=== PATIENT | male | born 1945 | race Caucasian/White ===

== ENCOUNTER 2017-03-29 19:11 | Emergency (ER) | payer MEDICARE ==
[~2017-03-29] VITALS: Ht 177.8 cm; Wt 82.9 kg
[~2017-03-29 19:11] MED LIST: ALPR.25 PO; GABA600T PO; METO25 PO; ROSU10 PO; VIAG50TA PO; ZOLO50TA PO
[2017-03-29 19:30] VITALS: BP 168/81; PULSE 83; RESP 16; TEMP 98.7; O2SAT 96
[2017-03-29] MEDS ORDERED: METO25TA3 PO (19:48)
[2017-03-29] MEDS ORDERED: ROSU5 PO (19:48)
[2017-03-29 19:55] VITALS: BP 167/81; PULSE 83; RESP 18; O2SAT 97
--- NOTE | 2017-03-29 19:55 | PD ---
HPI Chief Complaint: Allergic/Adverse Reaction Time Seen by Provider: 19:41 Travel History International Travel<30 days: No Contact w/Intl Traveler<30days: No Traveled to known affect area: No History of Present Illness HPI This patient filled a new prescription today Wellbutrin XL 150 mg. He took the first dose at 6 PM and tenderness later he developed dry mouth and dizziness. Symptoms severity is mild to moderate. Duration is 2 hours. Symptoms exacerbated by new medication. No alleviating factors. He takes it for stress and anxiety. PFSH Past Medical History Cancer: Yes (SKIN CA ON ARM AND FACE) Cardiovascular Problems: No Diabetes: No Diminished Hearing: No Endocrine: No Genitourinary: No Hepatitis: No Hiatal Hernia: No Hypertension: Yes Immune Disorder: No Musculoskeletal: No Neurologic: Yes (NUMBNESS AND TINGLING IN HEAD, CHEST ARMS AND LEGS) Psychiatric: No Reproductive: No Respiratory: No Thyroid Disease: No Past Surgical History Abdominal Surgery: No AICD: No Cardiac Surgery: No Ear Surgery: No Endocrine Surgery: No Eye Surgery: No Genitourinary Surgery: No Gynecologic Surgery: No Joint Replacement: No Oral Surgery: No Pacemaker: No Thoracic Surgery: No Other Surgery: Yes (DEVIATED SEPTUM) Social History Alcohol Use: No Tobacco Use: No Substance Use: No Allergies-Medications (Allergen,Severity, Reaction): Coded Allergies: Sulfa (Sulfonamide Antibiotics) (Unverified Allergy, Severe, 03/29/17) Reported Meds & Prescriptions Reported Meds & Active Scripts Active Reported Crestor (Rosuvastatin Calcium) 5 Mg Tab 5 Mg PO DAILY Metoprolol Tartrate 25 Mg Tab 25 Mg PO DAILY Review of Systems General / Constitutional: No: Fever Cardiovascular: No: Chest Pain or Discomfort Respiratory: No: Cough Gastrointestinal: No: Vomiting Physical Exam Narrative RESPIRATORY: Respiratory effort unlabored, no retractions or use of accessory muscles. Breath sounds are clear and symmetric. GASTROINTESTINAL: Abdomen soft, non-tender, nondistended. Positive bowel sounds. No hepato-splenomegaly, or palpable masses. No guarding. CARDIOVASCULAR: Regular rate and rhythm without murmur. Extremities showed no edema or varicosities. Data Data Last Documented VS Vital Signs Date Time Temp Pulse Resp B/P (MAP) Pulse Ox O2 Delivery O2 Flow Rate FiO2 03/29/17 19:51 83 18 96 Room Air 03/29/17 19:30 98.7 168/81 (110) [facility] Medical Decision Making Medical Screen Exam Complete: Yes Emergency Medical Condition: Yes Medical Record Reviewed: Yes Differential Diagnosis Medication side effect, allergic reaction, anxiety Narrative Course I have reviewed the patient's electronic medical record. Patient is having an adverse medication reaction to a new medication. He is not allergic. Will stop taking the medication. He has first substitute in the meantime and I wrote him 15 Vistaril to use as needed. I have warned him about the potential for sedation. He is to follow-up with primary care and discuss different medications Diagnosis Primary Impression: Medication side effects Qualified Codes: T88.7XXA - Unspecified adverse effect of drug or medicament, initial encounter Additional Instructions: The patient was advised to follow up with their physician and return if they worsen. The patient was warned about potential sedation for the medications they will receive on prescription. Med/Other Pt SpecificInfo: Prescription(s) given Disposition: 01 DISCHARGE HOME Condition: Stable Tam Cardenas MD Mar 29, 2017 19:55
[2017-03-29] MEDS ORDERED: VIST25CA PO (19:57)
== END 2017-03-29 20:13 | disposition home or self-care (01) ==
LOC: PHED 19:11
DX: T88.7XXA Unspecified adverse effect of drug or medicament, initial encounter (principal); I10 Essential (primary) hypertension
CPT/HCPCS: 99283

== ENCOUNTER 2017-08-03 10:53 | Emergency (ER) | payer MEDICARE ==
[~2017-08-03] VITALS: Ht 177.8 cm; Wt 86.3 kg
[~2017-08-03 10:53] MED LIST changes: -ALPR.25 PO; -GABA600T PO; -METO25 PO; +METO25TA3 PO; -ROSU10 PO; +ROSU5 PO; -VIAG50TA PO; +VIST25CA PO; -ZOLO50TA PO
[2017-08-03 10:57] VITALS: BP 139/70; PULSE 66; RESP 16; TEMP 97.7; O2SAT 96
[2017-08-03] MEDS ORDERED: ASPI-516 CHEW (11:27)
--- NOTE | 2017-08-03 12:29 | RADRPT ---
EXAM DATE/TIME: 08/03/2017 12:18 [place] COMPARISON: No previous studies available for comparison. INDICATIONS : Right distal thumb laceration from table saw. MEDICAL HISTORY : Hypertension. SURGICAL HISTORY : Deviated septum ENCOUNTER: Initial ACUITY: 1 day PAIN SCORE: 7/10 LOCATION: Right distal thumb FINDINGS: Examination of the first digit of the right hand demonstrates no evidence of fracture or dislocation. No radiopaque foreign bodies are seen. The soft tissues are intact. CONCLUSION: No acute fracture. Michel Skinner MD on August 03, 2017 at 12:27 Board Certified Radiologist. This report was verified electronically.
[2017-08-03] MEDS ORDERED: CEPH-460 PO (12:35)
--- NOTE | 2017-08-03 12:37 | PD ---
HPI Chief Complaint: Laceration/Skin Injury Time Seen by Provider: 11:19 Travel History International Travel<30 days: No Contact w/Intl Traveler<30days: No Traveled to known affect area: No History of Present Illness HPI This is a 71-year-old male here with a laceration to his right thumb caused by a table saw prior to arrival. His pain at the site of the laceration. No paresthesia or weakness of the digit. He has normal sensation and full range of motion. Tetanus immunization is up-to-date. Symptom severity is moderate. PFSH Past Medical History Hx Anticoagulant Therapy: Yes (asa 81mg) Anxiety: Yes Cancer: Yes (SKIN CA ON ARM AND FACE) Cardiovascular Problems: Yes (htn on meds) Diabetes: No Diminished Hearing: No Endocrine: No Gastrointestinal Disorders: No Genitourinary: No Hepatitis: No Hiatal Hernia: No Hypertension: Yes Immune Disorder: No Musculoskeletal: No Neurologic: Yes (NUMBNESS AND TINGLING IN HEAD, CHEST ARMS AND LEGS) Psychiatric: No Reproductive: No Respiratory: No Thyroid Disease: No Tetanus Vaccination: < 5 Years Influenza Vaccination: Yes Past Surgical History Abdominal Surgery: No AICD: No Cardiac Surgery: No Ear Surgery: No Endocrine Surgery: No Eye Surgery: No Genitourinary Surgery: No Gynecologic Surgery: No Joint Replacement: No Neurologic Surgery: No Oral Surgery: No Pacemaker: No Thoracic Surgery: No Other Surgery: Yes (DEVIATED SEPTUM) Social History Alcohol Use: Yes (OCCASIONAL) Tobacco Use: No Substance Use: No Allergies-Medications (Allergen,Severity, Reaction): Coded Allergies: Sulfa (Sulfonamide Antibiotics) (Verified Allergy, Severe, 08/03/17) Reported Meds & Prescriptions Reported Meds & Active Scripts Active Vistaril (Hydroxyzine Pamoate) 25 Mg Cap 25 Mg PO Q6H PRN Reported Aspirin 81 Mg Chew 81 Mg CHEW DAILY Crestor (Rosuvastatin Calcium) 5 Mg Tab 5 Mg PO DAILY Metoprolol Tartrate 25 Mg Tab 25 Mg PO DAILY Review of Systems Except as stated in HPI: all other systems reviewed are Neg Physical Exam Narrative GENERAL: Alert well-appearing 71-year-old male SKIN: Warm and dry. 2 cm flap laceration to the right thumb distal medial aspect. Small portion of the nail also missing. HEAD: Normocephalic. EYES: No injection or drainage. NECK: Supple MUSCULOSKELETAL: No cyanosis, or edema. Right thumb: 2 cm flap laceration to the right thumb distal medial aspect. Small portion of the nail also missing. Patient is able to flex and extend the IP joint. Normal sensation. Normal coloration. Brisk cap refill. Data Data Last Documented VS Vital Signs Date Time Temp Pulse Resp B/P (MAP) Pulse Ox O2 Delivery O2 Flow Rate FiO2 08/03/17 10:57 97.7 66 16 139/70 (93) 96 Orders Orders Finger ([id number]) (08/03/17 ) MDM Medical Decision Making Medical Screen Exam Complete: Yes Emergency Medical Condition: Yes Differential Diagnosis Laceration, nail bed injury, tendon/ligamental injury Narrative Course This is a 71-year-old male here with a flap laceration to the distal aspect of his right thumb. The digit is neurovascularly intact. I do not suspect foreign body or tendon injury. X-ray was obtained to rule out thumb fracture or foreign body. The wound was moderately contaminated from the blade of the saw. The wound was extensively irrigated. Laceration repair performed. There is a small area of avulsed skin loss which could not be sutured closed. He will be put on a short dose of of prophylactic antibiotics. Wound care discussed. She is to follow up with his primary doctor for recheck Procedures Procedure Narrative LACERATION LOCATION: Right thumb LENGTH: 2 cm flap laceration NUMBER OF STITCHES/HANY: 5 REPAIR: The area of the laceration was prepped with Betadine and sterilely draped. Digital block performed using 1% lidocaine. The wound was copiously irrigated and explored without evidence of foreign body, tendon injury or neurovascular injury. The wound was closed using 4-0 Ethilon. This was a single layer repair. A sterile dressing was applied. The patient was advised to keep the dressing clean and dry. Patient tolerated the procedure well. Diagnosis Primary Impression: Thumb laceration Qualified Codes: S61.111A - Laceration without foreign body of right thumb with damage to nail, initial encounter Referrals: Primary Care Physician Additional Instructions: Cleansed the area daily with soap and water. The area dry. Apply thin layer of antibiotic ointment and cover with a dressing. Do not submerge the wound in water. Antibiotics as prescribed. Follow-up with her doctor for recheck. Return if he developed new or worsening symptoms Scripts Cephalexin (Keflex) 500 Mg Cap 500 MG PO Q6H for Infection for 5 Days, #20 CAP 0 Refills Prov: Charity Nunes 08/03/17 Disposition: 01 DISCHARGE HOME Condition: Stable Charity Nunes Aug 03, 2017 12:37
== END 2017-08-03 12:50 | disposition home or self-care (01) ==
LOC: PHEFT 10:53
DX: S61.011A Laceration without foreign body of right thumb without damage to nail, initial encounter (principal); W29.8XXA Contact with other powered hand tools and household machinery, initial encounter; I10 Essential (primary) hypertension; Z79.82 Long term (current) use of aspirin
CPT/HCPCS: 12001; 73140